=== PATIENT | female | born 1995 | race Caucasian/White ===

== ENCOUNTER 2019-01-31 17:15 | Inpatient (IN) ==
[2019-01-31] MEDS ORDERED: ACETAMINOPHEN 325 MG TAB PO PRN (17:18)
[2019-01-31] MEDS ORDERED: SODIUM CHLORIDE 0.65% NA SOLN 45 ML (OCEAN) PRN (17:18)
[2019-01-31] MEDS ORDERED: ALUMINUM/MAGNESIUM SUSP 30 ML UDC PO PRN (17:18)
[2019-01-31] MEDS ORDERED: BISMUTH SUBSALICYLATE PER ML OMNICELL CHARGE PO PRN (17:18)
[2019-01-31] MEDS ORDERED: MAGNESIUM HYDROXIDE SUSP 30 ML UDC PO PRN (17:18)
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
--- NOTE | 2019-02-02 12:40 | Psychiatric Progress Note ---
Date of Service February 02, 2019 Impression / Recommendations Impression Adjusting to the structure and support of the milieu. Having a flight into health, feeling that she is ready to go home. Will have a family meeting with , mother and sister this afternoon. Wants to restart Cymbalta and try a higher dose, so will restart 60 mg tonight and if tolerated, increase to 90 mg daily. (1) Suicide attempt by other psychotropic drug overdose: 02/01 - Mild serotonin syndrome symptoms, improving. Hold duloxetine as still having some serotonergic symptoms from overdose. - Continue voluntary hospitalization. Every 15 minute checks for safety. - Work on healthy coping skills and discharge safety plan. Family meeting with -review safety plan, including that all medications are locked and secured. (2) Depression: 02/01 - Discussed diagnosis and treatment recommendations, including medication, therapy, and behavioral techniques for managing mood/coping skills. Discussed options of resuming duloxetine and trying a higher dose vs another antidepressant (escitalopram or venlafaxine XR). She opted for resuming duloxetine and titrating the dose, but will wait until OD symptoms resolve to resume medication. - Attend and participate in groups and therapy, work on healthy coping skills. - Assist the patient to apply for insurance, and refer for outpatient psychiatric care and therapy. 02/02 - Restart Cymbalta 60 mg daily and if tolerated, titrate to 90 mg in next few days - Family meeting this afternoon Inventory Assets Strengths: , employed, supportive , willing for treatment Needs: Outpatient care, safety plan Risk Factors Assessment Male: No : Yes Do You Have Access To A Gun?: No Health Problems: No Mental Health Diagnoses: Yes Substance Use Disorders: No Previous Attempt: Yes Family History of Suicide: No Previous Psychiatric Hospitalization: No Hopelessness: Yes Smoker: No Protective Factors Assessment : Yes Responsible for Young Children: Yes Employed: Yes Stable Relationships: Yes Supportive Family: Yes Interval History Identifying Information 24 yo female from the [facility], transferred to our facility voluntarily following a toxic ingestion of Cymbalta. Chief Complaint "Pretty good. ". Review of Systems Sleep Information Total Hours of Sleep: 8.25 Sleep Comments: pt on q-15 minute checks Meal Information Percent Meal Consumed - Breakfast: 100 Percent Meal Consumed - Lunch: 90 Percent Meal Consumed - Dinner: 90 Subjective Subjective Patient was seen & assessed and interval progress reviewed with Treatment Team. The patient says that she is adjusting to being on the unit. She is talking with another female patient about parenting and the associated anxiety. She felt good the her peer seemed to listen and benefit from her experiences. She is "nervous" about an upcoming meeting with her , now realizing that her mother and sister are coming as well. She says that her trusts her and if she says she is better, then he believes her, but her mother and sister "think that I'm faking it so I can go home.". She talked about her overdose and the barriers to reaching out to someone before hand. We discussed medications again and she continues to feel that she would like to try a higher dose of cymbalta rather than changing agents, because she felt that cymbalta was helpful when she started it. She denies SI today. She denies physical symptoms or residual serotonergic symptoms. Physical Exam Psychiatric Orientation: alert and cooperative Apperance: appropriately dressed and appropriately groomed Eye Contact: good eye contact Motor Behavior: steady gait and station and no abnormal motor movements Speech: normal rate/rhythm/volume of speech Affect: + anxious affect Mood: + anxious mood Thought Process: goal directed thought process Thought Content: reality based without delusions Suicidal Thoughts: denies suicidal thoughts Homicidal Thoughts: denies homicidal thoughts Hallucinations: no auditory hallucinations and no visual hallucinations Cognition: recent memory grossly intact, remote memory grossly intact, attention grossly intact and language grossly intact Estimated Intelligence: average estimated intelligence Insight: + limited insight Judgement: + limited judgement Vital Signs (Past 24 Hours) Last Vital Signs Temp 36.6 C 02/02/19 06:49 Pulse 91 H 02/02/19 06:50 Resp 16 02/02/19 06:49 BP 105/69 02/02/19 06:50 Results & Data Current Inpatient Medications Current Inpatient Medications: Current Inpatient Medications Acetaminophen (Tylenol) 650 mg PO Q4H PRN PRN Reason: Headache or Minor Fever Stop: 03/02/19 17:17 Al Hydrox/Mg Hydrox/Simethicone (Maalox) 30 ml PO Q4H PRN PRN Reason: GI Upset Stop: 03/02/19 17:17 Bismuth Subsalicylate (Kaopectate) 15 ml PO PRN PRN PRN Reason: Loose Stool Stop: 03/02/19 17:17 Hydroxyzine HCl (Vistaril) 50 mg PO HSZ PRN PRN Reason: Insomnia Stop: 03/02/19 17:17 Hydroxyzine HCl (Vistaril) 25 mg PO Q4H PRN PRN Reason: Anxiety Stop: 03/02/19 17:17 Magnesium Hydroxide (Milk Of Magnesia) 30 ml PO DAILY PRN PRN Reason: Heartburn Stop: 03/02/19 17:17 Sodium Chloride ([place] Nasal) 1 - 2 sprays NA PRN PRN PRN Reason: Nasal Dryness/Congestion Stop: 03/02/19 17:17 Post Discharge Appointments Primary Care Physician Name Of Family Doctor: Dr. Henson Contact Information Discharge Discharge Address: [address] [place] [id number] CPT Code CPT Code 00420
[2019-02-02] MEDS ORDERED: DULOXETINE HCL 60 MG CAP PO SCH (22:00)
--- NOTE | 2019-02-03 14:26 | Psychiatric Progress Note ---
Date of Service February 03, 2019 Impression / Recommendations Impression Pt appearing depressed and tearful today after learning that her best friend (a male friend, also close with patient's ), is no longer going to be active in their lives. Pt states she was able to process this with her , but feels as though she is losing a major support. Pt refused Cymbalta last evening and reports desire to discontinue medications to "see what I'm like without meds". Advised patient that it was not recommended at this time, when considering ongoing low mood, home stressors, loss of support, and having attempted a very serious suicide attempt. Reviewed that Cymbalta has been beneficial for mood and that decision to stop medications more ideally could be revisited when the patient has a period of stability. Despite these recommendations, the patient is not interested in continuing Cymbalta and reports plan instead to routinely monitor mood and other depressive symptoms - "keeping meds on the back burner." Pt advised again that she should be putting her thoughts on her mental health as a priority, and that recommendation remains for continuation of an effective antidepressant medication to improve mood. Pt is not agreeable with recommendations, therefore will hold Cymbalta and continue to revisit the topic. Pt was advised to construct a clear safety plan, in addition to her desire to rate mood daily - we discussed tracking sleep, negative thoughts, appetite, and other concerning symptoms that may go along with her depression. Pt requires ongoing inpatient mental health treatment due to seriousness of suicide attempt, recent situational stressor and loss of substantial support, and ongoing verbalization of worthlessness and feeling "replaceable." Pt is at high risk of harm to self if discharged prematurely, especially having decided against restarting antidepressant medications. (1) Suicide attempt by other psychotropic drug overdose: 02/01 - Mild serotonin syndrome symptoms, improving. Hold duloxetine as still having some serotonergic symptoms from overdose. - Continue voluntary hospitalization. Every 15 minute checks for safety. - Work on healthy coping skills and discharge safety plan. Family meeting with -review safety plan, including that all medications are locked and secured. 02/03 - Pt refusing to resume Cymbalta, wanting to observe mood off medications - Admits to ongoing feelings of being replaceable and "not necessary" - denies overt SI - Will need detailed safety plan moving forward, as she admits Cymbalta was effective for mood, but no longer wants to take it (2) Depression: 02/01 - Discussed diagnosis and treatment recommendations, including medication, therapy, and behavioral techniques for managing mood/coping skills. Discussed options of resuming duloxetine and trying a higher dose vs another antidepressant (escitalopram or venlafaxine XR). She opted for resuming duloxetine and titrating the dose, but will wait until OD symptoms resolve to resume medication. - Attend and participate in groups and therapy, work on healthy coping skills. - Assist the patient to apply for insurance, and refer for outpatient psyc maatric care and therapy. 02/02 - Restart Cymbalta 60 mg daily and if tolerated, titrate to 90 mg in next few days - Family meeting this afternoon 02/03 - Pt unwilling to resume Cymbalta, refused last evening's dose; verbalizing desire to monitor mood and keep medications as an option - Advised patient that with ongoing feelings of worthlessness, and in light of serious OD, it would not be this provider's or this service's recommendation that she discontinue medications - she remains adamant in her decision. - Recommending detailed safety plan with clear guidelines for when she will reach out to supports - as it is not ideal that she is choosing to discontinue antidepressant medications at this time Inventory Assets Strengths: , employed, supportive , willing for treatment Needs: Outpatient care, safety plan Risk Factors Assessment Male: No : Yes Do You Have Access To A Gun?: No Health Problems: No Mental Health Diagnoses: Yes Substance Use Disorders: No Previous Attempt: Yes Family History of Suicide: No Previous Psychiatric Hospitalization: No Hopelessness: Yes Smoker: No Protective Factors Assessment : Yes Responsible for Young Children: Yes Employed: Yes Stable Relationships: Yes Supportive Family: Yes Interval History Identifying Information LYNN ESCOBAR is a 24-year-old F who currently lives in [place], [place] with her and child, has a history of depression, and was admitted on 01/31/19 18:18 on a 201 voluntary commitment for a suicide attempt by overdose on duloxetine. She was transferred from an outside hospital in [place], [place]. Chief Complaint "Aaaaaaahhhhhhhhhhhhhh...up until this morning I was pretty good". Review of Systems Notes Constitutional: denied Cardiovascular: denied Respiratory: denied Gastrointestinal: denied Neurological: denied Psychiatric: denies symptoms other than stated above Total of at least 10 systems reviewed, pertinent positives as above and in HPI. Sleep Information Total Hours of Sleep: 7.5 Sleep Comments: pt on q-15 minute checks Meal Information Percent Meal Consumed - Breakfast: 75 Percent Meal Consumed - Lunch: 90 Percent Meal Consumed - Dinner: 100 Subjective Subjective Patient was seen & assessed and interval progress reviewed with Treatment Team. Staff reports the patient had a difficult meeting with her , mother, and sister yesterday - which resulted in varying recommendations from family members. Pt has submitted her 72-hour notice which expires 02/05 at 0825. Pt was seen today to assess progress since admission. The patient is tearful and admits that she is having a difficult morning, explaining to this provider a stressful conversation with her over the phone. The patient states that her called to inform her that a close mutual friend is no longer planning to be active in the patient or her 's life. The patient states that this is upsetting to her, as he was one of her "major pillars." Patient does admit that she reacted with anger during the initial phone call, and hung up on her . She was able to process the information and a constructive way when returning his phone call a few months later. Patient informs this provider of the outcome of family meeting held yesterday, and states that her mother, her sister, and do not necessarily agree on her treatment plan. The patient states "I am trying to please everyone, and I think I have a plan." She states the biggest concern at this time is regarding her medication. Her is not in favor of her remaining on antidepressants, but her sister and mother feel they are essential. The patient outlines a plan to rate her mood daily while at home, and "see what I am like, if the numbers are low then I will start medications." The patient was encouraged by this provider to determine a plan that it is in her best interest. The patient was reminded of frequent comments stating the medication has been beneficial for her mood. The patient continues to desire discontinuation of Cymbalta, "keeping it on the back burner." This provider shared concerns related to this plan, and encouraged her to focus heavily on safety planning and ability to reach out to supports if this was going to be her decision. She reports ongoing feelings of being "not necessary and replaceable." The patient states "same feelings, but less of a dramatic result." She does not verbalize any active suicidality, plan, or intent, but continues to voice depressed mood. Physical Exam Psychiatric Orientation: alert, oriented x 3 and cooperative Apperance: appropriately dressed, appropriately groomed (though somewhat malodorous) and appeared stated age Eye Contact: good eye contact Motor Behavior: steady gait and station and no abnormal motor movements Speech: normal rate/rhythm/volume of speech Affect: + depressed affect, + tearful affect, + constricted affect and mood congruent with affect Mood: + depressed mood and + anxious mood "up until this morning, pretty good" Thought Process: goal directed thought process Thought Content: reality based without delusions Suicidal Thoughts: denies suicidal thoughts but admits to ongoing feeling of being "replaceable" - "same feelings, but with less dramatic results" Homicidal Thoughts: denies homicidal thoughts Hallucinations: no auditory hallucinations and no visual hallucinations Cognition: recent memory grossly intact, remote memory grossly intact, attention grossly intact and language grossly intact Estimated Intelligence: average estimated intelligence Insight: + limited insight Judgement: + limited judgement Vital Signs (Past 24 Hours) Last Vital Signs Temp 36.7 C 02/03/19 06:52 Pulse 94 H 02/03/19 06:53 Resp 16 02/03/19 06:52 BP 118/74 02/03/19 06:53 Results & Data Current Inpatient Medications Current Inpatient Medications: Current Inpatient Medications Acetaminophen (Tylenol) 650 mg PO Q4H PRN PRN Reason: Headache or Minor Fever Stop: 03/02/19 17:17 Al Hydrox/Mg Hydrox/Simethicone (Maalox) 30 ml PO Q4H PRN PRN Reason: GI Upset Stop: 03/02/19 17:17 Bismuth Subsalicylate (Kaopectate) 15 ml PO PRN PRN PRN Reason: Loose Stool Stop: 03/02/19 17:17 Duloxetine HCl (Cymbalta) 60 mg PO HS NUNU Stop: 03/04/19 21:59 Last Admin: 02/02/19 21:05 Dose: Not Given Documented by: Hydroxyzine HCl (Vistaril) 50 mg PO HSZ PRN PRN Reason: Insomnia Stop: 03/02/19 17:17 Hydroxyzine HCl (Vistaril) 25 mg PO Q4H PRN PRN Reason: Anxiety Stop: 03/02/19 17:17 Magnesium Hydroxide (Milk Of Magnesia) 30 ml PO DAILY PRN PRN Reason: Heartburn Stop: 03/02/19 17:17 Sodium Chloride (Osborne Nasal) 1 - 2 sprays NA PRN PRN PRN Reason: Nasal Dryness/Congestion Stop: 03/02/19 17:17 Post Discharge Appointments Primary Care Physician Name Of Family Doctor: [facility] Date of Appointment with PCP: 02/25/19 Time of Appointment with PCP: 9:45 a.m. Provider Appointment Comment: [address] [place] [address] Doctor'S Assistant Name of Doctor'S Assistant: [facility] - will contact pt directly Phone Number for Doctor'S Assistant: [phone] Case Management Appointment Comment: [address] [place] [address] Contact Information Discharge Discharge Address: [address] [place] [address] [place] [id number] CPT Code CPT Code 44839
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
[2019-02-04] MEDS ORDERED: DESTROY THIS MEDICATION ONE (11:00)
== END 2019-02-04 13:55 | disposition home or self-care (01) | DRG 918 ==
LOC: 3S 18:18